=== PATIENT | male | born 1955 | race Caucasian/White ===

== ENCOUNTER 2019-11-27 13:08 | Outpatient (CLI) | payer BC, SELFPAY ==
--- NOTE | 2019-11-27 | XR_ITS ---
WS: [id number] SHOULDER RIGHT TECHNIQUE: 3 views of the right shoulder CLINICAL INFORMATION: RIGHT SHOULDER PAIN COMPARISON: None. FINDINGS: Moderate degenerative arthritis acromioclavicular joint. Rotator cuff arthropathy with narrowing of t he subacromial space. Normal glenohumeral joint. Normal glenoid. No evidence of acute fracture disloc ation. XR/XR shoulder RT min 2V* [id number] IMPRESSION: Moderate degenerative arthritis AC joint with rotator cuff arthropathy.
== END 2019-11-27 13:09 | disposition home or self-care (01) ==
LOC: RADOUTREAD 13:14
PROVIDERS: Family Provider Family Medicine; Visit Provider Nurse Practitioner
DX: Z76.89 Persons encountering health services in other specified circumstances (principal)

== ENCOUNTER → 2020-05-22 07:44 | Outpatient (BNVA) | payer MEDICARE, SELFPAY | PROVIDERS: Family Provider Family Medicine; PCP Family Medicine; Visit Provider Nurse Practitioner Family | DX: N45.1 Epididymitis (principal); N20.1 Calculus of ureter; G89.29 Other chronic pain; N48.6 Induration penis plastica; N40.1 Benign prostatic hyperplasia with lower urinary tract symptoms; N52.9 Male erectile dysfunction, unspecified; F17.290 Nicotine dependence, other tobacco product, uncomplicated | CPT/HCPCS: 81001 ==

== ENCOUNTER → 2020-08-06 08:03 | Outpatient (BNVA) | payer MEDICARE, SELFPAY | PROVIDERS: Family Provider Family Medicine; PCP Family Medicine; Visit Provider Urology | DX: N48.6 Induration penis plastica (principal); N40.1 Benign prostatic hyperplasia with lower urinary tract symptoms; Z12.5 Encounter for screening for malignant neoplasm of prostate | CPT/HCPCS: 81003; G0103 ==

== ENCOUNTER → 2021-08-09 07:51 | Outpatient (BNVA) | payer MEDICARE, SELFPAY | PROVIDERS: Family Provider Family Medicine; PCP Family Medicine; Visit Provider Urology | DX: Z12.5 Encounter for screening for malignant neoplasm of prostate (principal); N40.1 Benign prostatic hyperplasia with lower urinary tract symptoms | CPT/HCPCS: 81003; G0103 ==

== ENCOUNTER → 2021-11-09 08:26 | Outpatient (BNVA) | payer MEDICARE, SELFPAY | PROVIDERS: Family Provider Family Medicine; PCP Family Medicine; Visit Provider Urology | DX: N40.1 Benign prostatic hyperplasia with lower urinary tract symptoms (principal) | CPT/HCPCS: 81003 ==

== ENCOUNTER 2022-08-17 14:46 | Outpatient (CLI) | payer MEDICARE, SELFPAY ==
--- NOTE | 2022-08-17 15:05 | CT_ITS ---
WS: [id number] CT ABDOMEN PELVIS TECHNIQUE: Contrast-enhanced CT of the abdomen and pelvis with coronal and sagittal reformatted image s. CLINICAL INFORMATION: LLQ PAIN COMPARISON: 2018 DLP: 1039.[address] scans at [facility] use at least one of these dose optimization techniques: automated e xposure control; mA and/or kV adjustment per patient size (includes targeted exams where dose is matc hed to clinical indication); or iterative reconstruction. FINDINGS: Sigmoid diverticulosis. No evidence of acute diverticulitis. No drainable fluid collection or abscess . Urine distended bladder. Lung bases are well aerated. Subsegmental atelectasis in the lung bases. N ormal liver. Normal spleen. Normal portal vein and splenic vein. Small esophageal hiatal hernia. Norm al caliber abdominal aorta. Prior cholecystectomy. Normal pancreatic parenchymal enhancement. Adrenal glands are normal. Normal renal parenchymal enhanc ement. No hydronephrosis. Tiny fat-containing umbilical hernia. CT/CT abdomen pelvis w con* [id number] IMPRESSION: 1. Extensive sigmoid diverticulosis. Mild thickening of the sigmoid colon michelle lar to previous. No convincing evidence of acute diverticulitis. 2. No evidence of drainable abscess or fluid collection. 3. No inguinal or femoral hernia in the LEFT lower quadrant. 4. Tiny fat-containing umbilical hernia. 5. Small esophageal hiatal hernia. 6. No other suspicious findings.
[2022-08-17] MEDS: iohexol 350 mg/mL 100 mL Btl PO (15:13)
[2022-08-17 16:00] LABS: Blood Urea Nitrogen 15 mg/dL (8-23); Glomerular Filtration Rate 60.4 mL/min (90-130)
[2022-08-17] MEDS: iohexol 350 mg/mL 100 mL Btl IV (16:16)
== END 2022-08-17 14:47 | disposition home or self-care (01) ==
LOC: RAD 14:52
PROVIDERS: Radiology Neuroradiology; PCP Family Medicine; Visit Provider Nurse Practitioner
DX: K57.30 Diverticulosis of large intestine without perforation or abscess without bleeding (principal); K42.9 Umbilical hernia without obstruction or gangrene; K44.9 Diaphragmatic hernia without obstruction or gangrene
CPT/HCPCS: 74177; 82565; 84520; Q9967

== ENCOUNTER 2024-09-16 10:26 | Emergency (ER) | payer MEDICARE, SELFPAY ==
[2024-09-16 10:39] VITALS: BP 126/80; PULSE 73; RESP 18; TEMP 36.7; O2SAT 99
[2024-09-16 13:14] LABS: Basophils % 0.3 %; Eosinophils # 0.1 10^3/uL (0.0-0.8); Eosinophils % 1.9 %; Hematocrit 44.6 % (37-53); Lymphocytes # 1.8 10^3/uL (0.8-4.8); Lymphocytes % 27.4 %; Mean Corpuscular HGB Conc 32.5 g/dL (30-55); Mean Corpuscular Hemoglobin 29.4 pg (27-33); Mean Corpuscular Volume 90.3 fl (82-101); Mean Platelet Volume 10.8 fL (7.4-10.4); Monocytes # 0.6 10^3/uL (0.2-0.9); Monocytes % 9.5 %; Neutrophils # 4.06 10^3/uL (1.8-7.7); Neutrophils % 60.6 %; Nucleated Red Blood Cells % 0 %; Platelet Count 179 10^3/cmm (157-399); Red Blood Count 4.94 10^6/uL (3.85-5.65); Red Cell Distribution Width 13.7 % (12.1-15.1); White Blood Count 6.71 10^3/uL (3.29-11.43)
[2024-09-16 13:34] LABS: Alanine Aminotransferase 16 U/L (0-41); Albumin Level 4.3 g/dL (3.5-5.2); Alkaline Phosphatase 83 U/L (40-130); Anion Gap 17.6 (5-19); Aspartate Amino Transferase 20 U/L (0-40); Blood Urea Nitrogen 17 mg/dL (8-23); Calcium 9.1 mg/dL (8.5-10.5); Carbon Dioxide 26 mmol/L (22-29); Chloride 102 mmol/L (98-107); Globulin 3.1 g/dL (1.3-4.6); Glomerular Filtration Rate 83.7 mL/min (90-130); Glucose 90 mg/dL (65-115); Lipase 24 U/L (13-60); Osmolality Calculated 293 mOsm/kg (285-295); Potassium 4.6 mmol/L (3.5-5.1); Sodium 141 mmol/L (136-145); Total Bilirubin 0.7 mg/dL (0.15-1.2); Total Protein 7.4 g/dL (6.6-8.7)
== END 2024-09-16 16:21 | disposition left against medical advice (07) ==
PROVIDERS: Physician Assistant; Emergency Provider Family Medicine; PCP Family Medicine
DX: Z53.21 Procedure and treatment not carried out due to patient leaving prior to being seen by health care provider (principal)
CPT/HCPCS: 36415; 80053; 83690; 85025

== ENCOUNTER → 2024-10-22 09:53 | Outpatient (BNVA) | payer MEDICARE, SELFPAY | PROVIDERS: PCP Family Medicine; Referring Provider Family Medicine; Visit Provider Psychiatry & Neurology Neurology | DX: R29.898 Other symptoms and signs involving the musculoskeletal system (principal); M79.632 Pain in left forearm; M79.631 Pain in right forearm; M25.521 Pain in right elbow; M25.522 Pain in left elbow | CPT/HCPCS: 95911 ==

== ENCOUNTER → 2024-11-28 09:14 | Outpatient (BNVA) | payer MEDICARE, SELFPAY | PROVIDERS: PCP Family Medicine; Visit Provider Orthopaedic Surgery | DX: M79.641 Pain in right hand (principal); M79.642 Pain in left hand; G56.03 Carpal tunnel syndrome, bilateral upper limbs | CPT/HCPCS: 73110; 99204 ==

== ENCOUNTER 2024-12-25 05:38 | Day surgery (SDC) | payer MEDICARE, SELFPAY ==
[2024-12-16 11:46] LABS: Bilirubin Urine Negative (Negative); Blood Urine Trace (Negative); Glucose Urine UA Negative (Normal); Ketones Urine Negative (Negative); Leukocyte Esterase Urine Negative (Negative); Nitrate Urine Negative (Negative); Protein Urine Negative (Negative); Urine Appearance Clear (CLEAR); Urine Color Yellow (Yellow); Urobilinogen Urine 0.2 mg/dL (Negative)
[2024-12-16 11:46] LABS: Basophils % 0.5 %; Eosinophils # 0.1 10^3/uL (0.0-0.8); Eosinophils % 2.2 %; Hematocrit 45.9 % (37-53); Lymphocytes # 2.2 10^3/uL (0.8-4.8); Lymphocytes % 36.6 %; Mean Corpuscular HGB Conc 33.1 g/dL (30-55); Mean Corpuscular Hemoglobin 29.9 pg (27-33); Mean Corpuscular Volume 90.2 fl (82-101); Mean Platelet Volume 12.1 fL (7.4-10.4); Monocytes # 0.6 10^3/uL (0.2-0.9); Monocytes % 9.5 %; Neutrophils # 3.07 10^3/uL (1.8-7.7); Nucleated Red Blood Cells % 0 %; Platelet Count 162 10^3/cmm (157-399); Red Blood Count 5.09 10^6/uL (3.85-5.65); Red Cell Distribution Width 13.2 % (12.1-15.1); White Blood Count 6.01 10^3/uL (3.29-11.43)
[2024-12-16 11:51] LABS: Add Urine Microscopic? YES; Bacteria Urine None Seen /hpf; Hyaline Casts Urine 0-4 /lpf; RBC Urine 0-2 /hpf (0-2); Squamous Epithelial Cell Urine 0-5 /hpf (0-5); WBC Urine 0-5 /hpf (0-5)
[2024-12-16 12:23] LABS: Alanine Aminotransferase 17 U/L (0-41); Albumin Level 4.4 g/dL (3.5-5.2); Alkaline Phosphatase 100 U/L (40-130); Blood Urea Nitrogen 15 mg/dL (8-23); Calcium 9.1 mg/dL (8.5-10.5); Carbon Dioxide 26 mmol/L (22-29); Chloride 100 mmol/L (98-107); Globulin 3.2 g/dL (1.3-4.6); Glomerular Filtration Rate 95.8 mL/min (90-130); Glucose 75 mg/dL (65-115); Osmolality Calculated 284 mOsm/kg (285-295); Sodium 137 mmol/L (136-145); Total Bilirubin 0.7 mg/dL (0.15-1.2); Total Protein 7.6 g/dL (6.6-8.7)
[2024-12-16 12:35] LABS: Anion Gap 15.4 (5-19); Aspartate Amino Transferase 30 U/L (0-40); Potassium 4.4 mmol/L (3.5-5.1)
[2024-12-25] VITALS (11 sets, daily range): BP systolic 100–125; BP diastolic 60–81; PULSE 56–68; RESP 10–18; TEMP 36.1–36.4; O2SAT 91–100; BMI 22.8
[2024-12-25] MEDS: sodium chloride 0.9% 1,000 ML 30 ML IV (06:06)
--- NOTE | 2024-12-25 06:29 | ANES.PREANE2 ---
Pre-Anesthetic Assessment Height/Weight: Height 5 ft 9 in Weight 155 lb Temp Pulse Resp BP Pulse Ox O2 Del Method 97.6 F 56 L 18 125/81 100 Room Air 12/25/24 05:58 12/25/24 05:58 12/25/24 05:58 12/25/24 05:58 12/25/24 05:58 12/25/24 06:04 Preop Diagnosis: Carpal tunnel syndrome Operation Date: 12/25/24 07:00 Proposed Procedures p Right Carpal Tunnel Release(Right) - Justice Shay MD Was Beta Crystal taken within 24 hours: N/A Was Clonidine taken within 24 hours: N/A Last intake: Intake Last Liquid Date 12/24/24 Last Liquid Time 21:30 Last Solid Date 12/24/24 Last Solid Time 19:00 Social No alcohol and No tobacco Exam alert, oriented x 3, clear to auscultation bilaterally and regular rate & rhythm Airway Submandibular: within normal limits Cervical ROM: within normal limits Mallampati: Class II Dentition: full Comments: Comments: Implants in the front Anesthetic Plan ASA status: 2 Anesthesia: MAC Other: No prior issues with anesthesia NPO since yesterday evening Denies any pulmonary cardiac issues. Patient does struggle with chronic allergies Takes tramadol occasionally for chronic back pain Labs 12/16/2024 reviewed acceptable for procedure today Patient states he can still perform all his ADLs Plan for MAC anesthesia with local via surgeon Medications/Allergies Home Medications ?Medication ?Instructions ?Recorded ?Confirmed ?Last Taken ?Type alprazolam 0.5 mg tablet (Xanax) 0.5 mg PO DAILY PRN Anxiety 05/22/20 12/24/24 Unknown History budesonide 32 mcg/actuation nasal 2 spray intranasal DAILY 05/22/20 12/24/24 12/24/24 History spray montelukast 10 mg tablet 10 mg PO DAILY 05/22/20 12/24/24 12/24/24 History finasteride 5 mg tablet (Proscar) 5 mg PO DAILY 08/06/20 12/24/24 12/24/24 History prednisone 5 mg tablet 5 mg PO DAILY PRN arthritis 08/09/21 12/24/24 Unknown History esomeprazole magnesium 40 mg 40 mg PO DAILY 12/24/24 12/24/24 12/25/24 02:00 History capsule,delayed release (Nexium) tramadol 50 mg tablet 50 mg PO QID PRN Pain 12/24/24 12/24/24 12/23/24 History Allergies Allergy/AdvReac Type Severity Reaction Status Date / Time No Known Allergies Allergy Verified 12/24/24 12:33 Current Medications Generic Name Dose Route Start Last Admin Trade Name Freq PRN Reason Stop Dose Admin Sodium Chloride 1,000 mls @ 30 mls/hr 12/25/24 05:45 12/25/24 06:06 Sodium Chloride 0.9% IV 12/26/24 05:44 30 mls/hr .Q24H JESUS Administration PFSH Anesthesia Medical History BPH loc w urin obs/LUTS Peyronie's disease Chronic groin pain Osteoarthritis Erectile dysfunction History of deviated nasal septum surgery to repair Surgical History H/O colonoscopy Hx of cholecystectomy Hx of bilateral inguinal hernia repair Hx of hand surgery Family History Father Heart disease Mother Cancer Social History Smoking and tobacco/nicotine status: never used tobacco/nicotine Quit status (tobacco/nicotine): has quit using Year quit tobacco: chewed tobacco Alcohol intake: never Substance/Drug Use: unknown Adopted: No Caregiver/support person: No Lives independently: No Household members: spouse Marital status: Current occupational status: retired Data Anesthesia 12/16/24 11:17 12/16/24 11:17 Cardiac Studies: No Data to Display
--- NOTE | 2024-12-25 06:58 | W.PM.OPSFHP ---
Same Day Surgery H&P Indication for Procedure/HPI DATE OF PROCEDURE: December 25, 2024 CHIEF COMPLAINT/INDICATIONFOR SURGICAL PROCEDURE: Syndrome of the right hand, numbness and tingling with loss of strength PREOP DIAGNOSIS: Carpal tunnel syndrome PLANNED PROCEDURE: Operation Date: 12/25/24 07:00 Proposed Procedures p Right Carpal Tunnel Release(Right) - Justice Shay MD Medications/Allergies* Home Medications ?Medication ?Instructions ?Recorded ?Confirmed ?Type alprazolam 0.5 mg tablet (Xanax) 0.5 mg PO DAILY PRN Anxiety 05/22/20 12/24/24 History budesonide 32 mcg/actuation nasal 2 spray intranasal DAILY 05/22/20 12/24/24 History spray montelukast 10 mg tablet 10 mg PO DAILY 05/22/20 12/24/24 History finasteride 5 mg tablet (Proscar) 5 mg PO DAILY 08/06/20 12/24/24 History prednisone 5 mg tablet 5 mg PO DAILY PRN arthritis 08/09/21 12/24/24 History esomeprazole magnesium 40 mg 40 mg PO DAILY 12/24/24 12/24/24 History capsule,delayed release (Nexium) tramadol 50 mg tablet 50 mg PO QID PRN Pain 12/24/24 12/24/24 History Allergies/Adverse Reactions Allergy/AdvReac Type Severity Reaction Status Date / Time No Known Allergies Allergy Verified 12/24/24 12:33 Current Medications: Generic Name Dose Route Start Last Admin Trade Name Freq PRN Reason Stop Dose Admin Sodium Chloride 1,000 mls @ 30 mls/hr 12/25/24 05:45 12/25/24 06:06 Sodium Chloride 0.9% IV 12/26/24 05:44 30 mls/hr .Q24H JESUS Administration Pertinent History/Comorbid Conditions* Medical History (Updated 11/28/24 @ 12:06 by Justice Shay MD) BPH loc w urin obs/LUTS Peyronie's disease Chronic groin pain Osteoarthritis Erectile dysfunction History of deviated nasal septum surgery to repair Surgical History (Updated 05/22/20 @ 08:29 by Ulisses Hurt MD) H/O colonoscopy Hx of cholecystectomy Hx of bilateral inguinal hernia repair Hx of hand surgery Family History (Updated 05/21/20 @ 13:07 by Esmer Yang, CONSTRUCTION LINEMAN) Father Mother Heart disease Father Cancer Mother Social History Smoking and tobacco/nicotine status: never used tobacco/nicotine Quit status (tobacco/nicotine): has quit using Year quit tobacco: chewed tobacco Alcohol intake: never Substance/Drug Use: unknown Adopted: No Caregiver/support person: No Lives independently: No Household members: spouse Marital status: Current occupational status: retired Pertinent Exam Findings alert, oriented x 3, clear to auscultation bilaterally, regular rate & rhythm, operative site marked and procedure specific exam findings Recommendations Surgery/Procedure today Other Plans: Plan for right carpal tunnel release Coding Level of Care Code Acute Code for Chg Fwd
[2024-12-25] MEDS: ceFAZolin 2,000 mg SDV 2000 MG IVP (06:59)
[2024-12-25] MEDS: lidocaine-epi 1% 20 mL INJ 5 ML INJECTION (07:14)
[2024-12-25] MEDS: ROPivacaine 0.5% SDV 30 mL 25 MG INJECTION (07:15)
--- NOTE | 2024-12-25 07:31 | P.OP_ITS ---
Operative Report Date of procedure: December 25, 2024 Surgeon: Justice Shay MD Procedure: Preoperative diagnosis: Right carpal tunnel syndrome Postop diagnosis: Same Procedure: Right carpal tunnel release Surgeon: Justice Shay MD Anesthesia: General With local anesthetic EBL: 1 cc Tourniquet time: 6 minutes at 250 mmHg Complications: None Indications: Ismael is a 69-year-old white [facility]. He has had previous EMGs demonstrating compression of the median nerve at the carpal tunnel. He has failed all conservative measures. His clinical exam is consistent with carpal tunnel syndrome. Patient was then offered a carpal tunnel release. All risk benefits treatment alternatives were discussed including but not limited to blood loss nerve injury infection possible continued symptoms secondary to permanent damage that is already occurred. Patient was understanding agreed to proceed with surgical intervention. Procedure: After obtaining her consent patient was taken to the operating room and still on his [facility] had general anesthetic administered. Once good anesthesia was achieved pneumatic cuffs placed from the proximal right arm and right arm was prepped and draped usual fashion. After surgical timeout the arm was exsanguinated with an Esmarch wrap and pneumatic cuff is inflated to 250 mmHg. A longitudinal incision was made on the palmar surface of the proximal palm. Just ulnar to the mid palmar crease extending from the distal flexion crease of the wrist distally approximately 1-1/2 to 2 cm. Sharp dissection taken on down to the transverse carpal ligament. This was then divided with a #15 blade to expose the contents. From this point a Metzenbaum scissor was used and a sharp and blunt fashion to divide the transverse carpal ligament both proximally and distally. Exploration of the area found that adequate release have been achieved. Wound was then injected with half percent Marcaine for post operative pain management. Wound was then closed with 3-0 nylon running horizontal mattress suture. Wound was then dressed with Xeroform gauze sterile gauze dressing, Kerlix, and Allen wrap for compression. Patient was awakened transferred to cover room in stable condition
[2024-12-25] MEDS: HYDROcodone-acetaminophen 5-325 mg Tablet 1 TAB PO (08:57)
--- NOTE | 2024-12-25 09:19 | ANE.PACU2 ---
Inpatient post-anesthesia follow up: Airway intact: Yes Vital signs: Temperature 97 F Pulse Rate 68 Respiratory Rate 18 Blood Pressure 112/67 Pulse Oximetry 100 Oxygen Delivery Me thod Room Air Oxygen Flow Rate 6 Fraction of Inspir ed Oxygen Hydration adequate: Yes Nausea and vomiting: No Pain level: 1 Mental status: Baseline
== END 2024-12-25 09:19 | disposition home or self-care (01) ==
PROVIDERS: PCP Family Medicine; Visit Provider Orthopaedic Surgery
PROC: (CPT 64721; principal; 2024-12-25 07:00)
DX: G56.01 Carpal tunnel syndrome, right upper limb (principal); Z87.891 Personal history of nicotine dependence
CPT/HCPCS: 64721; 36415; 80053; 81001; 85025; J0690; J1100; J2405; J2704; J2795; J3010; J7030; J9999

== ENCOUNTER → 2025-01-09 08:07 | Outpatient (BNVA) | payer MEDICARE, SELFPAY | PROVIDERS: PCP Family Medicine; Visit Provider Orthopaedic Surgery | DX: Z98.890 Other specified postprocedural states (principal) | CPT/HCPCS: 99024 ==

== ENCOUNTER 2025-04-01 09:31 | Emergency (ER) | payer MEDICARE, SELFPAY ==
--- NOTE | 2025-04-01 09:33 | ECG_ITS ---
[facility] Test Date: 2025-04-01 Pat Name: Ismael Crawford Department: Room: Gender: Male Slurry Control Tender: : 1955 Requested By: James Melton Order Number: [id number] Leanne MD: Orlando Cantu M.D. Measurements Intervals [place] Rate: 55 P: 37 FL: 175 QRS: 34 QRSD: 91 T: 63 QT: 404 QTc: 388 Interpretive Statements SINUS BRADYCARDIA Compared to ECG 10/23/2015 18:11:45 Sinus rhythm no longer present Electronically Signed On 04-03-2025 09:05:13 CDT by Orlando Cantu M.D. [email or web address]
--- NOTE | 2025-04-01 09:33 | XR_ITS ---
WS: [id number] XR chest 1V portable [id number] REASON FOR EXAM: chest pain FINDINGS: Mild to moderate tortuosity and ectasia of the thoracic aorta. Normal heart size. Calcified granulomatous disease bilaterally. Ill-defined lucencies in the upper lung juárez with decreased interstitial markings, suggesting central lobar emphysema. No acute pulmonary parenchymal or pleural abnormality is identified. XR/XR chest 1V portable [id number] IMPRESSION: No acute chest abnormality. Probable central lobar emphysema.
--- NOTE | 2025-04-01 09:34 | ED_ITS ---
HPI - Chest Pain 2 General: Chief Complaint: Chest Pain Stated Complaint: [facility] sent, chest pain Time Seen by Provider: 04/01/25 09:33 History of Present Illness: 69-year-old male presents emergency room at the direction of the primary care office in [facility] with complaints of chest pain. No cardiac history. Patient does have a history of some reflux. No dysuria urgency or frequency no productive cough no fever sweats or chills. Most of his chest comfort is epigastric leg. Associated symptoms: Deny abdominal pain, dyspnea or fever(s) Related Data Home Medications ?Medication ?Instructions ?Recorded ?Confirmed montelukast 10 mg tablet 10 mg PO DAILY 05/22/2010/26 finasteride 5 mg tablet (Proscar) 5 mg PO DAILY 04/01/25 tramadol 50 mg tablet 50 mg PO QID PRN Pain 04/01/25 polyvinyl alcohol-povidone (PF) 1 drp ophthalmic (eye) BID PRN Dry 04/01/25 04/01/25 1.4 %-0.6 % eye drops in a Eyes dropperette (Refresh Classic (PF)) Previous Rx's ?Medication ?Instructions ?Recorded pantoprazole 40 mg tablet,delayed 40 mg PO BID 10 days #40 tabs 04/01/25 release Allergies Allergy/AdvReac Type Severity Reaction Status Date / Time No Known Allergies Allergy Verified 01/09/25 08:24 Review of Systems 2 Const: Denies: fever(s) or chills Card: Denies: chest pain Resp: Denies: dyspnea GI: Denies: abdominal pain : Denies: dysuria, urinary frequency or urinary urgency Musc: Denies: neck pain or back pain Skin/Breast: Denies: rash PFSH ED 2 PFSH: Medical History BPH loc w urin obs/LUTS Peyronie's disease Chronic groin pain Osteoarthritis Erectile dysfunction History of deviated nasal septum surgery to repair Surgical History H/O colonoscopy Hx of cholecystectomy Hx of bilateral inguinal hernia repair Hx of hand surgery Family History Father Heart disease Mother Cancer Social History Smoking and tobacco/nicotine status: never used tobacco/nicotine Quit status (tobacco/nicotine): has quit using Year quit tobacco: chewed tobacco Alcohol intake: never Substance/Drug Use: unknown Adopted: No Caregiver/support person: No Lives independently: No Household members: spouse Marital status: Current occupational status: retired Physical Exam 2 Const: GENERAL APPEARANCE: cooperative ORIENTATION/CONSCIOUSNESS: Yes awake, Yes oriented to person, Yes oriented to place and Yes oriented to time HENMT: COMMON NORMALS: normocephalic, atraumatic and hearing grossly normal bilaterally HEAD & SCALP: normocephalic and atraumatic Resp: COMMON NORMALS: normal respiratory effort, No retractions, No use of accessory muscles and clear to auscultation bilaterally AUSCULTATION: clear to auscultation bilaterally Cardio: COMMON NORMALS: regular rate, regular rhythm and No murmurs present (Cardio) RATE: regular rate RHYTHM: regular rhythm GI: COMMON NORMALS: Soft to palpation and No hepatosplenomegaly present A USCULTATION: Yes normoactive bowel sounds PALPATION: Yes Soft to palpation, No Tenderness to palpation present (GI), No Guarding due to palpation present (GI) and Yes No hepatosplenomegaly present Extremity: COMMON NORMALS: normal to inspection, capillary refill normal, no clubbing, cyanosis or edema, no calf tenderness and no pedal edema Neuro: SENSORIUM/ORIENTATION: Yes oriented to person, Yes oriented to place and Yes oriented to time Skin: COMMON NORMALS: no rashes or lesions noted GENERAL SKIN EXAM: no rashes or lesions noted Course 2 Vital Signs: Vital signs: Vital Signs Temperature 98.1 F 04/01/25 09:40 Pulse Rate 57 L 04/01/25 13:02 Respiratory Rate 18 04/01/25 13:02 Blood Pressure 113/78 04/01/25 13:02 Pulse Oximetry 98 04/01/25 13:02 Oxygen Delivery Me thod Room Air 04/01/25 11:30 MDM - Chest Pain Medical Decision Making Cardiac enzymes and EKG negative. Chest x-ray unremarkable will change him from omeprazole to pantoprazole. Will set him up for an outpatient stress test patient reports he had an angiogram several years ago that was normal. While in the emergency room patient noticed several episodes of bradycardia dipping into the 40s. They were not prolonged and he was asymptomatic we will set him up for 72-hour Holter monitor Medical Records I reviewed the patient's medical records. Lab Data I reviewed the patient's lab results. 04/01/25 09:57 04/01/25 09:57 Radiology Impressions Chest X-Ray 04/01/25 09:33 IMPRESSION: No acute chest abnormality. Probable central lobar emphysema. Laboratory Results WBC 3.85 10^3/uL (3.29-11.43) 04/01/25 09:57 RBC 5.05 10^6/uL (3.85-5.65) 04/01/25 09:57 Hgb 14.90 g/dL (11.27-16.99) 04/01/25 09:57 Hct 45.3 % (37-53) 04/01/25 09:57 MCV 89.7 fl (82-101) 04/01/25 09:57 MCH 29.5 pg (27-33) 04/01/25 09:57 MCHC 32.9 g/dL (30-55) 04/01/25 09:57 RDW 13.5 % (12.1-15.1) 04/01/25 09:57 Plt Count 163 10^3/cmm (157-399) 04/01/25 09:57 MPV 10.9 fL (7.4-10.4) H 04/01/25 09:57 Neut % (Auto) 58.9 % 04/01/25 09:57 Lymph % (Auto) 29.1 % 04/01/25 09:57 [place] % (Auto) 9.4 % 04/01/25 09:57 Eos % (Auto) 1.8 % 04/01/25 09:57 Baso % (Auto) 0.5 % 04/01/25 09:57 Neut # (Auto) 2.27 10^3/uL (1.8-7.7) 04/01/25 09:57 Lymph # (Auto) 1.1 10^3/uL (0.8-4.8) 04/01/25 09:57 [place] # (Auto) 0.4 10^3/uL (0.2-0.9) 04/01/25 09:57 Eos # (Auto) 0.1 10^3/uL (0.0-0.8) 04/01/25 09:57 Baso # (Auto) 0.0 10^3/uL (0.0-0.1) 04/01/25 09:57 Nucleated RBC % (auto) 0 % 04/01/25 09:57 Nucleated RBCs # 0.0 /100WBC 04/01/25 09:57 Sodium 140 mmol/L (136-145) 04/01/25 09:57 Potassium 3.7 mmol/L (3.5-5.1) 04/01/25 09:57 Chloride 103 mmol/L (98-107) 04/01/25 09:57 Carbon Dioxide 26 mmol/L (22-29) 04/01/25 09:57 Anion Gap 14.7 (5-19) 04/01/25 09:57 BUN 12 mg/dL (8-23) 04/01/25 09:57 Creatinine 1.0 mg/dL (0.7-1.2) 04/01/25 09:57 GFR Calculation 73.9 mL/min (90-130) L 04/01/25 09:57 Glucose 79 mg/dL (65-115) 04/01/25 09:57 Calculated Osmolality 289 mOsm/kg (285-295) 04/01/25 09:57 Calcium 9.1 mg/dL (8.5-10.5) 04/01/25 09:57 Total Bilirubin 0.6 mg/dL (0.15-1.2) 04/01/25 09:57 AST 21 U/L (0-40) 04/01/25 09:57 ALT 15 U/L (0-41) 04/01/25 09:57 Alkaline Phosphatase 100 U/L (40-130) 04/01/25 09:57 Troponin T Baseline 7 ng/L (0-15) 04/01/25 09:57 Troponin T 120 Minute < 6.0 ng/L (0-15) 04/01/25 11:56 Delta Troponin T -1.13195 ABS# (0-10) L 04/01/25 11:56 Total Protein 7.5 g/dL (6.6-8.7) 04/01/25 09:57 Albumin 4.3 g/dL (3.5-5.2) 04/01/25 09:57 Globulin 3.2 g/dL (1.3-4.6) 04/01/25 09:57 All radiology interpretation(s) finalized by discharge EKG Data EKG 1: Interpretation: Sinus bradycardia with a rate of 55 TN interval 175 QTc [address] changes noted. Discharge Plan Discharge Patient Disposition: Home Clinical Impression: Atypical chest pain, Chest pain due to GERD Condition: Stable Prescriptions: New pantoprazole 40 mg tablet,delayed release (DR/EC) 40 mg PO BID 10 Days Qty: 40 0RF Rx Instructions: 1 p.o. twice daily x 10 days then 1 p.o. daily Discontinued esomeprazole magnesium [Nexium] 40 mg capsule,delayed release(DR/EC) 40 mg PO DAILY No Action montelukast 10 mg tablet 10 mg PO DAILY finasteride [Proscar] 5 mg tablet 5 mg PO DAILY tramadol 50 mg tablet 50 mg PO QID PRN (Reason: Pain) Refresh Classic (PF) 1.4-0.6 % Dropperette 1 drp OPHTHALMIC (EYE) BID PRN (Reason: Dry Eyes) Discharge Orders: Discharge ED (Routine); Ordered 04/01/25 Ordered By: James Seals Referrals: Bay Herrera MD [Primary Care Provider, [facility]] Discharge Diet: As Directed Discharge Activity: Resume usual activity Patient Instructions: Diet for Stomach Ulcers and Gastritis (ED), GERD (Gastroesophageal Reflux Disease) (ED), Opioid Safety, Pain Management, Patient Portal & [place] Instructions Activity Restrictions/Additional Instructions: Thank you for choosing [facility] for your healthcare needs today. It is very important that you follow up as instructed or that you return to the Emergency Department should you have concerns or if your condition changes or worsens in any way. You were seen in the emergency room with complaints of chest discomfort. Your cardiac enzymes and EKG were normal. Recommend that you switch from omeprazole to pantoprazole 40 mg twice a day for 10 days then 40 mg daily. Will also set you up for an outpatient stress test. Print Language: Azeri Coding Level of Care Code ED Bottle Washing Machine Operator for Gisele Sheth
[2025-04-01 09:40] VITALS: BP 125/71; PULSE 55; RESP 16; TEMP 36.7; O2SAT 100; BMI 23.1
--- OUTSIDE RECORDS SUMMARY | 2025-04-01 09:43 | XMS_ITS | Encounter Summary ---
Author Organization [facility] Address [address] [place] [address] Care Team Providers Care Casino Banker Name Role Phone Bay Herrera MD Primary Care Provider [phone] Encounter Details Date Type Department Care Team (Latest Contact Info) Description 07/08/2005 Outpatient Historical [facility] [place] [address] [place] [id number] Asaf Mccartney MD NO ADDRESS ON FILE CHRONIC RHINITIS (Primary Dx) Social History Tobacco Use Types Packs/Day Years Used Date Smoking Tobacco: Never Assessed Sex and Gender Information Value Date Recorded Sex Assigned at Not on file 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
--- OUTSIDE RECORDS SUMMARY | 2025-04-01 09:43 | XMS_ITS | Clinical Summary ---
Author Organization [facility] Address [address] [facility] [facility] [place] [address] Care Team Providers Care Safety Risk Lead Name Role Phone Bay Herrera MD Primary Care Provider [phone] Allergies No known active allergies Medications montelukast (SINGULAIR) 10 mg tablet TAKE 1 TABLET BY MOUTH EVERY DAY NEEDED FOR CONGESTION AND COUGH 0 Active pantoprazole (PROTONIX) 40 mg Tablet, Delayed Release (E.C.) TAKE 1 TABLET BY MOUTH TWICE A DAY 0 Active famotidine (PEPCID) 20 mg tablet TAKE 1 TABLET BY MOUTH TWICE A DAY 0 Active dutasteride (AVODART) 0.5 mg Capsule TAKE 1 CAPSULE BY MOUTH EVERY DAY 0 Active ALPRAZolam (XANAX) 0.25 mg tablet TAKE 1/2 1 TABLET BY MOUTH 2 TIMES DAILY NEEDED 0 Active fluticasone propionate (FLONASE) 50 mcg/spray [place], Suspension nasal inhaler Administer 2 Sprays in each nostril daily. Active cetirizine (ZyrTEC) 10 mg tablet Take 10 mg by mouth daily. 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 Gender Identity Not on file Sexual Orientation Not on file Last Filed Vital Signs Vital Sign Reading Time Taken Comments Blood Pressure 125/72 05/07/2020 2:16 PM CDT Pulse 61 05/07/2020 2:16 PM CDT Temperature - - Respiratory Rate - - Oxygen Saturation - - Inhaled Oxygen Concentration - - Weight 68.5 kg (151 lb) 05/07/2020 2:16 PM CDT Height 177.8 cm (5' 10 ) 05/07/2020 2:16 PM CDT Body Mass Index 21.67 05/07/2020 2:16 PM CDT Plan of Treatment Health Maintenance Due Date Last Done Comments DTAP/TDAP/TD VACCINES (1 - Tdap) 1973 COLORECTAL SCREENING 12/21/1999 Colorectal Cancer Screening 12/21/1999 FIT-DNA Q 3 years 12/21/1999 FIT/FOBT Q 1 year 12/21/1999 Flex Sig/CT Colonography Q 5 years 12/21/1999 PNEUMOCOCCAL VACCINE 50+ YEARS (1 of 1 - PCV) 12/21/19 05 ZOSTER VACCINE (1 of 2) 2004 INFLUENZA VACCINE (#1) 2024 RSV VACCINE (60+ or ) (1 - 1-dose 75+ series) 2029 Insurance MEDICARE PART A AND B AARP SUPP Care Teams Safety Risk Lead Relationship Specialty Start Date End Date Bay Herrera MD [address] [address] PCP - General Family Practice 04/10/20
--- OUTSIDE RECORDS SUMMARY | 2025-04-01 09:43 | XMS_ITS | Patient Health Record ---
Author Organization [email or web address] Address [address] [address] Care Team Providers Care Outside Sales Manager Name Role Phone Cindy Camarena Unavailable [phone] Allergies No Known Allergies Reason For Referral No Information Medications Medication SIG (Take, Route, Frequency, Duration) Notes Start Date End Date Status Montelukast Sodium 10 MG Oral; Duration: 90 Days Active Famotidine 20 MG Oral; Duration: 90 Days Active Flonase Active Vitamin E 180 MG (400 UNIT) as directed Orally Active ALPRAZolam 0.25 MG TAKE 1/2-1 TABLET BY MOUTH TWICE DAILY NEEDED Oral; Duration: 15 Days Not-Taking Finasteride 5 MG TAKE 1 TABLET BY MOUTH EVERY DAY Oral; Duration: 90 Days Active Pantoprazole Sodium 40 MG Oral; Duration: 90 Days Not-Taking Tamsulosin HCl 0.4 MG 1 capsule Orally twice daily; Duration: [address] weathers Active Esomeprazole Magnesium Active Rhinocort Allergy Ac tive metroNIDAZOLE 0.75 % External; Duration: 30 Days Not-Taking Ciprofloxacin HCl 500 MG Oral; Duration: 7 Days Not-Taking predniSONE 5 MG TAKE 1 or 2 TABLETS BY MOUTH DAILY prn joint pain Oral; Duration: 5 days As needed Active Amoxicillin-Pot Clavulanate 875-125 MG Oral; Duration: 10 Days Not-Taking Minocycline HCl 100 MG Oral; Duration: 3 0 Days Not-Taking Diclofenac Sodium 1 % External; Duration : 30 Days Not-Taking Social History Sex Assigned At : Social History Observation Description Sex Assigned At Male Section Notes: retired Vital Signs Heart Rate 62 /min 04/15/2024 Temperature 97.5 degrees Fahrenheit 04/15/2024 Height-cm 175.26 cm 04/15/2024 Blood pressure diastolic 64 mm Hg 04/15/2024 Oximetry 98 % 04/15/2024 Weight-kg 68.86 kg 04/15/2024 Height 69 in 04/15/2024 Blood pressure systolic 120 mm Hg 04/15/2024 Weight 151.8 lbs 04/15/2024 BMI 22.41 kg/m2 04/15/2024 Encounters Encounter Location Date Provider Diagnosis [email or web address] [address] [facility] [address] [place] [address] 04/15/2024 Cindy Camarena Cellulitis of left lower limb L03.116 Assessments Encounter Date Diagnosis (ICD Code) Assessment Notes Treatment Notes Treatment Clinical Notes Section Notes 04/15/2024 Cellulitis of left lower limb (ICD-10 - L03.116) daily wash with antibacterial soap. keep covered if draining. can us otc TARIQ. Call or return if worsening or not improving. Plan Of Treatment No Information Insurance Providers Payer Name Payer Address Payer Phone Subscriber Number Group Number Insured Name Patient Relationship to Insured Coverage Start Date Coverage End Date [place] Medicare-J 5 [id number] [facility] [address] [place], [place] [id number] Ismael Crawford Self - patient is the insured AARP Medicare Supp Plan G/F [address] [place] [address] [id number] Ismael Crawford Self - patient is the insured Medical (General) History Medical History History ICD Code chronic sinus problems gerd bph osteoarthritis Surgical History Surgery Date(Month/Year) inguinal hernia repair., bilateral cholecystectomy left small finger
--- OUTSIDE RECORDS SUMMARY | 2025-04-01 09:43 | XMS_ITS | Clinical Summary ---
Author Organization [facility] Address [address] [facility] Attn: Epic Prelude ADT [place] [address] Care Team Providers Care Pharmaceutical Process Engineer Name Role Phone Bay Herrera MD Primary Care Provider [phone] Allergies No known active allergies Medications fluticasone propionate (FLONASE) 50 mcg/spray [place], Suspension nasal inhaler Administer 2 Sprays in each nostril daily. 0 Active famotidine (PEPCID) 20 mg tablet TAKE 1 TABLET BY MOUTH TWICE A DAY 0 Active pantoprazole (PROTONIX) 40 mg Tablet, Delayed Release (E.C.) TAKE 1 TABLET BY MOUTH TWICE A DAY 0 Active cetirizine (ZyrTEC) 10 mg tablet Take 10 mg by mouth daily. 0 Active montelukast (SINGULAIR) 10 mg tablet TAKE 1 TABLET BY MOUTH EVERY DAY NEEDED FOR CONGESTION AND COUGH 0 Active dutasteride (AVODART) 0.5 mg Capsule TAKE 1 CAPSULE BY MOUTH EVERY DAY 0 Active ALPRAZolam (XANAX) 0.25 mg tablet TAKE 1/2 1 TABLET BY MOUTH 2 TIMES DAILY NEEDED 0 Active tramadol HCl (TRAMADOL ORAL) Take by mouth. Active Active Problems No known active problems Encounters Date Type Department Care Team Description 03/11/2025 External Device Data [facility] Provider, Abstract 03/04/2025 External Device Data [facility] Provider, Abstract 03/04/2025 External Device Data [facility] Provider, Abstract 02/25/2025 External Device Data [facility] Provider, Abstract 02/20/2025 External Device Data [facility] Provider, Abstract 02/20/2025 External Device Data [facility] Provider, Abstract 02/19/2025 External Device Data [facility] Provider, Abstract 02/18/2025 External Device Data [facility] Provider, Abstract 01/21/2025 External Device Data [facility] Provider, Abstract 01/14/2025 External Device Data [facility] Provider, Abstract from Last 3 Months Family History Medical History Relation Name Comments Osteoporosis Neg Hx Social History Tobacco Use Types Packs/Day Years Used Date Smoking Tobacco: Never Smokeless Tobacco: Former Tobacco Cessation:Counseling Given: No Feeling Safe Answer Date Recorded Are you in a relationship wi th someone who hurts you emotionally and/or physically? No 09/17/2024 Sex and Gender Information Value Date Recorded Sex Assigned at Not on file Legal Sex Male 11:30 AM ASSISTANT PUBLIC DEFENDER Gender Identity Not on file Sexual Orientation Not on file Last Filed Vital Signs Vital Sign Reading Time Taken Comments Blood Pressure 128/76 09/23/2024 1:34 PM ASSISTANT PUBLIC DEFENDER Pulse 61 09/23/2024 1:34 PM ASSISTANT PUBLIC DEFENDER Temperature 36.3 C (97.3 F) 09/23/2024 1:34 PM ASSISTANT PUBLIC DEFENDER Respiratory Rate 18 09/17/2024 10:59 AM ASSISTANT PUBLIC DEFENDER Oxygen Saturation 97% 09/23/2024 1:34 PM ASSISTANT PUBLIC DEFENDER Inhaled Oxygen Concentration - - Weight 72.2 kg (159 lb 1.9 oz) 09/23/2024 1:34 P M ASSISTANT PUBLIC DEFENDER Height 175.3 cm (5' 9 ) 09/23/2024 1:34 PM ASSISTANT PUBLIC DEFENDER Body Mass Index 23.5 09/23/2024 1:34 PM ASSISTANT PUBLIC DEFENDER Plan of Treatment Health Maintenance Due Date [...] 2029 Insurance MEDICARE PART A AND B Care Teams Pharmaceutical Process Engineer Relationship Specialty Start Date End Date Bay Herrera MD [address] [place] [id number] PCP - General Family Practice 04/10/20
--- OUTSIDE RECORDS SUMMARY | 2025-04-01 09:43 | XMS_ITS | Encounter Summary ---
Author Organization [facility] Address [address] [place] [address] Care Team Providers Care Core Checker Name Role Phone Bay Herrera MD Primary Care Provider [phone] Encounter Details Date Type Department Care Team (Latest Contact Info) Description 06/09/2005 Outpatient Historical [facility] Allergy and Ast[facility]- [place] [address] [place] [id number] Asaf Mccartney MD NO ADDRESS ON FILE CHRONIC RHINITIS (Primary Dx) Social History Tobacco Use Types Packs/Day Years Used Date Smoking Tobacco: Never Assessed Sex and Gender Information Value Date Recorded Sex Assigned at Not on file Legal Sex Male 3:52 AM REGIONAL ECONOMIC LIAISON Gender Identity Not on file Sexual Orientation Not on file documented as of this encounter Plan of Treatment Not on file documented as of this encounter Visit Diagnoses Diagnosis Chronic rhinitis- Primary documented in this encounter Care Teams Core Checker Relationship Specialty Start Date End Date Bay Herrera MD [address] [id number] PCP - General Family Practice 04/10/20 documented as of this encounter
[2025-04-01 10:04] LABS: Hematocrit 45.3 % (37-53); Hemoglobin 14.90 g/dL (11.27-16.99); Mean Corpuscular HGB Conc 32.9 g/dL (30-55); Mean Corpuscular Hemoglobin 29.5 pg (27-33); Mean Corpuscular Volume 89.7 fl (82-101); Nucleated Red Blood Cells % 0 %; Platelet Count 163 10^3/cmm (157-399); Red Blood Count 5.05 10^6/uL (3.85-5.65); White Blood Count 3.85 10^3/uL (3.29-11.43)
[2025-04-01 10:11] VITALS: BP 122/67; PULSE 52; RESP 13
[2025-04-01 10:31] LABS: Troponin(5th) Baseline 7 ng/L (0-15)
[2025-04-01 10:32] LABS: Alanine Aminotransferase 15 U/L (0-41); Albumin Level 4.3 g/dL (3.5-5.2); Alkaline Phosphatase 100 U/L (40-130); Anion Gap 14.7 (5-19); Aspartate Amino Transferase 21 U/L (0-40); Blood Urea Nitrogen 12 mg/dL (8-23); Calcium 9.1 mg/dL (8.5-10.5); Carbon Dioxide 26 mmol/L (22-29); Chloride 103 mmol/L (98-107); Creatinine Clr Calc Pharmacy 68.9360; Globulin 3.2 g/dL (1.3-4.6); Glucose 79 mg/dL (65-115); Osmolality Calculated 289 mOsm/kg (285-295); Potassium 3.7 mmol/L (3.5-5.1); Sodium 140 mmol/L (136-145); Total Protein 7.5 g/dL (6.6-8.7)
[2025-04-01 11:00] VITALS: BP 113/75; PULSE 53; RESP 18; O2SAT 98
[2025-04-01 11:30] VITALS: BP 118/68; PULSE 52; RESP 18; O2SAT 100
[2025-04-01 12:23] LABS: Troponin 5 2HR < 6.0 ng/L (0-15)
[2025-04-01 12:30] VITALS: BP 113/73; PULSE 56; RESP 8; O2SAT 98
[2025-04-01 12:32] LABS: Troponin 5 2HR Delta -1.00001 ABS# (0-10)
[2025-04-01 13:02] VITALS: BP 113/78; PULSE 57; RESP 18; O2SAT 98
--- NOTE | 2025-04-02 08:33 | DCPLANNER ---
Message sent to Heart care- Cardiac enzymes and EKG negative. Chest x-ray unremarkable will change him from omeprazole to pantoprazole. Will set him up for an outpatient stress test patient reports he had an angiogram several years ago that was normal. While in the emergency room patient noticed several episodes of bradycardia dipping into the 40s. They were not prolonged and he was asymptomatic we will set him up for 72-hour Holter monitor
--- NOTE | 2025-04-03 07:37 | DCPLANNER ---
faxed outpatient order or lexiscan to scheduling
== END 2025-04-01 13:09 | disposition home or self-care (01) ==
PROVIDERS: Emergency Provider Family Medicine; PCP Family Medicine
DX: R07.89 Other chest pain (principal); K21.9 Gastro-esophageal reflux disease without esophagitis; Z87.891 Personal history of nicotine dependence
CPT/HCPCS: 36415; 71045; 80053; 84484; 85025; 93005; 99285; J9999

== ENCOUNTER 2025-04-09 07:48 | Outpatient (CLI) | payer MEDICARE, SELFPAY ==
--- NOTE | 2025-04-09 | ECG_ITS ---
[facility] 2025[facility]09 Pat Name: Ismael Crawford Department: Room: Gender: Male Simulation Technician: : 1955 Requested By: James Melton Order Number: [id number] Leanne MD: Meredith Man M.D. Interpretive Statements Lung unchanged pre/post procedure; Intraprocedure shortess of breath; Symptoms resoled by discharge PROCEDURE: At the baseline, the EKG revealed sinus bradycardia with a heart rate of [address] changes. The baseline heart was 50 bpm with a blood pressue of 129/73 mm of Hg Lexiscan was infused over a period of 20 seconds. A total of 0.4 milligrams of Lexiscan was infused. The stress phase was continued for a total of 5 minutes. Heart rate at the end of the stress phase was 75 bpm with a blood pressure 114/67 mm of Hg. The EKG at the peak infusion revealed no significant changes. Sestamibi was injected 20 seconds after the Lexiscan infusion. Heart rate at the end of the recovery phase was 69 bpm with a blood pressure of 118/73 mm of Hg. CONCLUSION: 1. No significant EKG changes with the LexiScan infusion 2. No LexiScan induced chest pain or cardiac arrhythmia 3. Normal blood pressure and heart rate response 4. Sestamibi/sestamibi perfusion scan pending; see separate report. Electronically Signed On 04-13-2025 21:55:05 CDT by Meredith Man M.D. [email or web address]
[2025-04-09 08:04] VITALS: BMI 22.8
--- NOTE | 2025-04-09 08:05 | NMCV_ITS ---
NM annette perf SPECT r/s* [id number] Ismael Crawford Age: 69 Gender: M : 1955 Exam Date: 04/09/2025 08:50 Ordering Phys: James Seals DO Technologist: MARYANA Musa Exam Location: [facility] Indications: cp STRESS TEST Please see separate stress test report in [facility] for full findings IMAGE PROTOCOL Rest/Stress 1 Lexiscan Day Radiopharmaceutical Dose (mCi) Administration Site Administered by Rest: Tc-99m 10.5 IV Zandra Pal, ACID EXTRACTOR Sestamibi Stress:Tc-99m 32.7 IV Zandra Kae, ACID EXTRACTOR Sestamibi Rest: 09-Apr-2025 60 Discovery 630 Stress: 09-Apr-2025 30 Discovery 630 0.4mg Lexiscan. Images obtained in supine and prone position. SPECT RESULTS Technical Quality: Good Raw Data Analysis: Normal Image Corrections: No attenuation or motion correction applied Summed Stress Score: 6 Summed Rest Score: 10 Summed Difference Score: 1 PERFUSION FINDINGS Moderate area of minimal to moderate decrease tracer uptake involving the mid and apical inferior, mid inferolateral, mid inferoseptal segments. Slight reversibility was noted in the mid inferolateral area with the supine imaging. However with the prone imaging, there was no significant reversible defects. Segmental wall motion analysis revealing no gross wall motion abnormalities FUNCTIONAL RESULTS (calculated via Gated SPECT) Stress Image LV EF (%): 68 Stress EDV (mL):88 TID: 1.02 Stress ESV (mL):28 FUNCTIONAL FINDINGS: Segmental wall motion analysis revealing no gross wall motion abnormalities IMPRESSIONS 1. Myocardial perfusion imaging revealing moderate area of minimal to moderate decrease tracer uptake involving the mid and apical inferior, mid inferolateral and mid inferoseptal regions with the subtle area of reversibility in the mid inferolateral segment may suggest myocardial scarring with ischemia in distribution of the RCA/circumflex artery. Because of the inconsistency with the prone imaging, the reliability is questionable 2. Normal LV ejection fraction of 68%. 3. LV wall motion analysis revealing no gross wall motion abnormalities. 4. Normal LV volume. Compared to study from 08/16/2019, there may not be a significant change Dr Meredith Man MD [facility] (Electronically Signed) Final Date: 09 April 2025 13:21 S
[2025-04-09 09:46] VITALS: BP 117/73; PULSE 69
== END 2025-04-09 07:49 | disposition home or self-care (01) ==
LOC: CDL 07:49
PROVIDERS: PCP Family Medicine; Visit Provider Family Medicine
DX: R07.89 Other chest pain (principal); R93.1 Abnormal findings on diagnostic imaging of heart and coronary circulation
CPT/HCPCS: 36415; 78452; 93017; 96374; A9500; J2785

== ENCOUNTER → 2025-05-12 08:21 | Outpatient (BNVA) | payer MEDICARE, SELFPAY | PROVIDERS: PCP Family Medicine; Visit Provider Internal Medicine | DX: R00.1 Bradycardia, unspecified (principal); R00.0 Tachycardia, unspecified; I49.3 Ventricular premature depolarization; I49.1 Atrial premature depolarization; R42 Dizziness and giddiness | CPT/HCPCS: 93242 ==

== ENCOUNTER → 2025-06-09 10:47 | Outpatient (BNVA) | payer MEDICARE, SELFPAY | PROVIDERS: PCP Family Medicine; Referring Provider Family Medicine; Visit Provider Internal Medicine Cardiovascular Disease | DX: R07.9 Chest pain, unspecified (principal); R94.39 Abnormal result of other cardiovascular function study; K21.9 Gastro-esophageal reflux disease without esophagitis; Z87.891 Personal history of nicotine dependence; R06.09 Other forms of dyspnea | CPT/HCPCS: 99204 ==

== ENCOUNTER 2025-07-04 08:00 | Outpatient (CLI) | payer MEDICARE, SELFPAY ==
--- NOTE | 2025-07-04 08:00 | USCV_ITS ---
Ismael Crawford Age: 69 Gender: M : 1955 Exam Date: 07/04/2025 08:27 Ordering Phys: Meredith Man MD ([email or web address]) Technologist: JONATHAN [place] [facility] [place]: CP BP: 116 / 66 HR: 51 Rhythm: Sinus Technical Quality: Adequate MEASUREMENTS (Male / Female) Normal Values 2D ECHO LV Diastolic Diameter PLAX 4.0 cm 4.2 - 5.9 / 3.9 - 5.3 cm IVS Diastolic Thickness 0.9 cm 0.6 - 1.0 / 0.6 - 0.9 cm IVS Systolic Thickness 1.3 cm LVPW Diastolic Thickness 1.3 cm 0.6 - 1.0 / 0.6 - 0.9 cm LVPW Systolic Thickness 1.6 cm LVOT Diameter 2.1 cm LV Ejection Fraction 2D Teich 56.5 % LV Ejection Fraction MOD 4C 58.4 % LV Ejection Fraction MOD 2C 58.6 % LV Ejection Fraction 2C AL 57.5 % LA Diameter 3.4 cm RA Systolic Volume 4C AL 38.4 ml RA Systolic Volume 4C MOD 34.9 ml LA Sys Volume AL 31.7 cm cubed LA Sys Volume Index AL 17.2 cm cubed/m squared Aorta at Sinotubular Diameter 2.9 cm IVC Diameter 2.0 cm M-MODE LA Ao Ratio MM 1.2 AV Cusp Separation MM 1.8 cm DOPPLER AV Peak Velocity 113.0 cm/s LVOT Peak Velocity 94.0 cm/s AV Area Cont Eq vti 2.6 cm squared AV Area Cont Eq pk 2.8 cm squared MV Peak Velocity 75.0 cm/s MV Area PHT 4.1 cm squared Mitral E to A Ratio 1.0 TV Peak Velocity 162.0 cm/s TR Peak Velocity 220.0 cm/s TR Peak Gradient 19.4 mmHg TV Peak E Velocity 63.0 cm/s PV Peak Velocity 71.0 cm/s FINDINGS Left Ventricle Normal left ventricular size and systolic function, EF 58%. Relative hypokinesis of the inferolateral wall segment.. Grade I/IV diastolic dysfunction (abnormal relaxation filling pattern), normal to mildly elevated filling pressures. Right Ventricle Possibly of normal size and ejection fraction Right Atrium Normal right atrial size. Left Atrium Normal left atrial size. IA Septum No atrial septal defect, based on the color-flow Doppler examination Mitral Valve Mild mitral valve regurgitation. Aortic Valve Thickened aortic valve. Tricuspid Valve Trace tricuspid valve regurgitation. Pulmonic Valve Pulmonic valve not well visualized. Pericardium Aorta Normal aortic annulus size. IVC Normal inferior vena cava. CONCLUSIONS Normal left ventricular size and systolic function, EF 58%. Relative hypokinesis of the inferolateral wall segment.. Grade I/IV diastolic dysfunction (abnormal relaxation filling pattern), normal to mildly elevated filling pressures. Mild mitral valve regurgitation. Thickened aortic valve. Trace tricuspid valve regurgitation. Estimated pulmonary artery peak systolic pressure, within normal limit There is no pericardial effusion. No similar previous studies are available for comparison Dr Meredith Man MD [facility] (Electronically Signed) Final Date: 06 July 2025 18:36 S
== END 2025-07-04 08:01 | disposition home or self-care (01) ==
LOC: RAD 08:02
PROVIDERS: PCP Family Medicine; Visit Provider Internal Medicine Cardiovascular Disease
DX: R06.09 Other forms of dyspnea (principal); R07.9 Chest pain, unspecified; I51.89 Other ill-defined heart diseases; I34.0 Nonrheumatic mitral (valve) insufficiency; I35.8 Other nonrheumatic aortic valve disorders
CPT/HCPCS: 93306

== ENCOUNTER → 2025-09-16 10:01 | Outpatient (BNVA) | payer MEDICARE, SELFPAY | PROVIDERS: PCP Family Medicine; Visit Provider Nurse Practitioner Family | DX: R07.89 Other chest pain (principal); K21.9 Gastro-esophageal reflux disease without esophagitis; R94.39 Abnormal result of other cardiovascular function study | CPT/HCPCS: 99214 ==